=== PATIENT | male | born 1990 | race Caucasian/White ===

== ENCOUNTER 2021-06-28 10:54 | Outpatient (CLI) | payer BC | END 2021-06-28 10:55 | disposition home or self-care (01) | LOC: CSHMRI 10:54 | PROVIDERS: ATTEND Orthopaedic Surgery | DX: M77.8 Other enthesopathies, not elsewhere classified (principal); M25.521 Pain in right elbow; M67.921 Unspecified disorder of synovium and tendon, right upper arm ==